=== PATIENT | female | born 1985 | race Caucasian/White ===

== ENCOUNTER 2024-09-21 20:29 | Emergency (ER) | payer BC ==
--- NOTE | 2024-09-21 21:11 | ED ---
Nausea/Vomiting/Diarrhea HPI - General Chief complaint: Nausea/Vomiting/Diarrhea Stated complaint: vomitting Time Seen by Provider: 09/21/24 20:42 Source: patient, EMS, RN notes reviewed Mode of arrival: EMS Limitations: no limitations - History of Present Illness Initial comments: This is a 38-year-old female with a history of ulcerative colitis and subsequent colon resection presenting to the emergency department via EMS for complaint of nausea, vomiting, diarrhea. States that symptoms started today and have progressed. She denies hematemesis, hematochezia, melena. Endorses fevers and chills. Denies cough, rhinorrhea, congestion, chest pain, difficulties in breathing, heart palpitations, peripheral edema. Patient states that her sons at home have been experiencing similar symptoms and is concerned that she may have contracted the stomach flu. - Related Data Previous Rx's Medication Instructions Recorded Loperamide [Imodium] 2 mg PO QID PRN #14 capsule 09/21/24 Ondansetron Odt [Zofran Odt] 4 mg PO Q8HR PRN #10 tab 09/21/24 Allergies Allergy/AdvReac Type Severity Reaction Status Date / Time No Known Allergies Allergy Verified 09/21/24 20:39 Review of Systems ROS Statement: Those systems with pertinent positive or pertinent negative responses have been documented in the HPI. ROS Other: All systems not noted in ROS Statement are negative. Past Medical History Additional Past Medical History / Comment(s): large bowel removed (2010) History of Any Multi-Drug Resistant Organisms: None Reported Past Surgical History: Bowel Resection Past Psychological History: No Psychological Hx Reported Smoking Status: Never smoker Past Alcohol Use History: Occasional Past Drug Use History: None Reported General Exam Limitations: no limitations General appearance: alert, in no apparent distress Neck exam: Present: normal inspection. Absent: tenderness, meningismus, lymphadenopathy Respiratory exam: Present: normal lung sounds bilaterally. Absent: respiratory distress, wheezes, rales, rhonchi, stridor Cardiovascular Exam: Present: regular rate, normal rhythm, normal heart sounds. Absent: systolic murmur, diastolic murmur, rubs, gallop, clicks GI/Abdominal exam: Present: soft, normal bowel sounds. Absent: distended, te nderness, guarding, rebound, rigid Extremities exam: Present: normal inspection, full ROM, normal capillary refill. Absent: tenderness, pedal edema, joint swelling, calf tenderness Back exam: Present: normal inspection Skin exam: Present: warm, dry, intact, normal color. Absent: rash Course Vital Signs 09/21/24 20:32 Temperature 98.3 F Pulse Rate 100 Respiratory 16 Rate Blood Pressure 101/71 O2 Sat by Pulse 100 Oximetry Medical Decision Making - Medical Decision Making Was pt. sent in by a medical professional or institution (, PA, ECONOMICS ANALYST, urgent care, hospital, or usp...) When possible be specific @ -No Did you speak to anyone other than the patient for history (EMS, parent, family, police, friend...)? What history was obtained from this source @ -No Did you review nursing and triage notes (agree or disagree)? Why? @ -I reviewed and agree with nursing and triage notes Were old charts reviewed (outside hosp., previous admission, EMS record, old EKG, old radiological studies, urgent care reports/EKG's, usp records)? Report findings @ -No old charts were reviewed Differential Diagnosis (chest pain, altered mental status, abdominal pain women, abdominal pain men, vaginal bleeding, weakness, fever, dyspnea, syncope, headache, dizziness, GI bleed, back pain, seizure, CVA, palpatations, mental health, musculoskeletal)? @ -Differential Abdominal Pain Women: Appendicitis, Cholecystitis, diverticulosis, ischemic bowel, pancreatitis, hepatitis, UTI, gastroenteritis, AAA, incarcerated hernia, bowel obstruction, constipation, inflammatory bowel, hepatitis, peptic ulcer disease, splenic infarction, perforated viscus, vulvitis, ovarian torsion, PID, kidney stone, placenta abruption, this is not meant to be an all-inclusive list EKG interpreted by me (3pts min.). @ -None X-rays interpreted by me (1pt min.). @ -None done CT interpreted by me (1pt min.). @ -None done U/S interpreted by me (1pt. min.). @ -None done What testing was considered but not performed or refused? (CT, X-rays, U/S, labs)? Why? @ -None What meds were considered but not given or refused? Why? @ -None Did you discuss the management of the patient with other professionals (professionals i.e. , STUART, ECONOMICS ANALYST, lab, RT, psych nurse, social welfare research worker, legal aide, teacher, disciplinary hearing officer, major case detective)? Give summary @ -No Was smoking cessation discussed for >3mins.? @ -No Was critical care preformed (if so, how long)? @ -No Were there social determinants of health that impacted care today? How? (Homel essness, low income, unemployed, alcoholism, drug addiction, transportation, low edu. Level, literacy, decrease access to med. care, halfway, rehab)? @ -No Was there de-escalation of care discussed even if they declined (Discuss DNR or withdrawal of care, Hospice)? DNR status @ -No What co-morbidities impacted this encounter? (DM, HTN, Smoking, COPD, CAD, Cancer, CVA, ARF, Chemo, Hep., AIDS, mental health diagnosis, sleep apnea, morbid obesity)? @ -None Was patient admitted / discharged? Hospital course, mention meds given and route, prescriptions, significant lab abnormalities, going to OR and other pertinent info. @ -Discharge. 38-year-old female presenting EMS for nausea, vomiting, diarrhea. Patient has a stable on arrival. Physical examination is unremarkable. She is provided with IV fluids and antiemetics. Labs remarkable for leukocytosis of 22.5, left shift 21.8 and bands 23. CMP is unremarkable. On reevaluation after medication ministration patient states that she is feeling much better. She is sent a prescription for Imodium and Zofran instructed follow-up with primary care provider in the next 1 to 2 days for further evaluation. All questions have been answered at bedside strict return parameters have been discussed with the patient she is verbalized understanding. Case discussed with Dr. Valdes Undiagnosed new problem with uncertain prognosis? @ -No Drug Therapy requiring intensive monitoring for toxicity (Heparin, Nitro, Insulin, Cardizem)? @ -No Were any procedures done? @ -No Diagnosis/symptom? @ -Gastroenteritis, acute nausea and vomiting, acute diarrhea Acute, or Chronic, or Acute on Chronic? @ -Acute Uncomplicated (without systemic symptoms) or Complicated (systemic symptoms)? @ -Uncomplicated Side effects of treatment? @ -No Exacerbation, Progression, or Severe Exacerbation? @ -No Poses a threat to life or bodily function? How? (Chest pain, [place], [place], pneumonia, PE, COPD, DKA, ARF, appy, cholecystitis, CVA, Diverticulitis, Homicidal, Suicidal, threat to staff... and all critical care pts) @ -No - Lab Data Result diagrams: 09/21/24 21:15 09/21/24 21:15 Lab Results 09/21/24 09/21/24 Range/Units 21:15 21:15 WBC 22.5 H (3.8-10.6) k/uL RBC 4.91 (3.80-5.40) m/uL Hgb 11.5 (11.4-16.0) gm/dL Hct 37.7 (34.0-46.0) % MCV 76.8 L (80.0-100.0) fL MCH 23.4 L (25.0-35.0) pg MCHC 30.4 L (31.0-37.0) g/dL RDW 15.3 (11.5-15.5) % Plt Count 224 (150-450) k/uL MPV 7.5 Neutrophils % (Manual) 74 % Band Neuts % (Manual) 23 % Lymphocytes % (Manual) 1 % Monocytes % (Manual) 2 % Neutrophils # (Manual) 21.80 H (1.3-7.7) k/uL Lymphocytes # (Manual) 0.23 L (1.0-4.8) k/uL Monocytes # (Manual) 0.45 (0-1.0) k/uL Nucleated RBCs 0 (0-0) /100 WBC Manual Slide Review Performed Toxic Granulation Present Toxic Vacuolation Present Hypochromasia Marked Microcytosis Slight Ovalocytes Present Sodium 139 (137-145) mmol/L Potassium 4.7 (3.5-5.1) mmol/L Chloride 107 (98-107) mmol/L Carbon Dioxide 13 L (22-30) mmol/L Anion Gap 19 mmol/L BUN 17 (7-17) mg/dL Creatinine 0.98 (0.52-1.04) mg/dL Est GFR (CKD-EPI)AfAm 83 (>60 ml/min/1.73 sqM) Est GFR (CKD-EPI)NonAf 72 (>60 ml/min/1.73 sqM) Glucose 133 H (74-99) mg/dL Calcium 9.2 (8.4-10.2) mg/dL Total Bilirubin 1.2 (0.2-1.3) mg/dL AST 47 H (14-36) U/L ALT 21 (4-34) U/L Alkaline Phosphatase 94 (38-126) U/L Total Protein 8.9 H (6.3-8.2) g/dL Albumin 5.1 H (3.5-5.0) g/dL Amylase 74 (30-110) U/L Lipase 54 (23-300) U/L Disposition Clinical Impression: Gastroenteritis, Nausea and vomiting, Diarrhea Disposition: HOME SELF-CARE Condition: Good Instructions (If sedation given, give patient instructions): Acute Nausea and Vomiting (ED), Acute Diarrhea (ED) Additional Instructions: Please return to the Emergency Department if symptoms worsen or any other concerns. Prescriptions: Loperamide [Imodium] 2 mg PO QID PRN #14 capsule PRN Reason: Diarrhea Ondansetron Odt [Zofran Odt] 4 mg PO Q8HR PRN #10 tab PRN Reason: Nausea Is patient prescribed a controlled substance at d/c from ED?: No Referrals: None,Stated [REFERRING] - 1-2 days Time of Disposition: 22:48
[2024-09-21] MEDS: ONDANSETRON 4 MG/2 ML VIAL IVP STA (21:14)
[2024-09-21] MEDS: SODIUM CHLORIDE 0.9% 1,000 ML IV STA (21:15)
[2024-09-21 21:43] LABS: HCT 37.7 % (34.0-46.0); HGB 11.5 gm/dL (11.4-16.0); Hypochromasia Marked; MCH 23.4 pg (25.0-35.0); MCHC 30.4 g/dL (31.0-37.0); MCV 76.8 fL (80.0-100.0); Mean Platelet Volume 7.5; Microcytosis Slight; Platelet Count 224 k/uL (150-450); RBC 4.91 m/uL (3.80-5.40); RDW 15.3 % (11.5-15.5); WBC 22.5 k/uL (3.8-10.6)
[2024-09-21 22:09] LABS: Band Neutrophils % 23 %; Lymphocytes # (M) 0.23 k/uL (1.0-4.8); Monocytes # (M) 0.45 k/uL (0-1.0); Neutrophils % (M) 74 %; Nucleated Red Blood Cells 0 /100 WBC (0-0); Total Cells Counted 200
[2024-09-21 22:10] LABS: Ovalocytes Present; Toxic Granulation Present; Toxic Vacuolation Present
[2024-09-21 22:29] LABS: ALT 21 U/L (4-34); African American GFR (CKD) 83 (>60 ml/min/1.73 sqM); Amylase 74 U/L (30-110); Anion Gap 19 mmol/L; Blood Urea Nitrogen 17 mg/dL (7-17); Calcium 9.2 mg/dL (8.4-10.2); Carbon Dioxide 13 mmol/L (22-30); Chloride 107 mmol/L (98-107); Glucose 133 mg/dL (74-99); Lipase 54 U/L (23-300); Non-African American GFR(CKD) 72 (>60 ml/min/1.73 sqM); Sodium 139 mmol/L (137-145); Total Bilirubin 1.2 mg/dL (0.2-1.3)
[2024-09-21 22:37] LABS: AST 47 U/L (14-36); Albumin 5.1 g/dL (3.5-5.0); Alkaline Phosphatase 94 U/L (38-126); Potassium 4.7 mmol/L (3.5-5.1); Total Protein 8.9 g/dL (6.3-8.2)
[2024-09-21] MEDS: ONDANSETRON 4 MG ODT STARTER PACK 2 TAB BTL PO STA (23:27)
[2024-09-21 23:33] VITALS: BP 108/73; PULSE 92; RESP 18; TEMP 99.9
== END 2024-09-21 23:33 | disposition home or self-care (01) ==
LOC: EC 20:29
DX: K52.9 Noninfective gastroenteritis and colitis, unspecified (principal)
CPT/HCPCS: 36415; 80053; 82150; 83690; 85025; 99284; 96374; 96361 ×2; J2405; S0119